=== PATIENT | male | born 1940 | race Caucasian/White ===

== ENCOUNTER 2017-03-26 06:02 | Day surgery (SDC) | payer OTHER ==
[~2017-03-26] VITALS: Ht 182.9 cm; Wt 118.2 kg
[~2017-03-26 06:02] MED LIST: ASPI81CH37 CHEW; ATOR40TA16 PO; CARV3.12 PO; GLIP10TA6 PO; ISOS30TA3 PO; LISI-515 PO; METF500T4 PO; MULTTAB67 PO; VITA100064 PO; VITA100T5 PO
[2017-03-26 06:40] VITALS: BP 157/84; PULSE 64; RESP 20; TEMP 98.2; O2SAT 94
[2017-03-26] MEDS ORDERED: [UNRECOGNIZED DRUG - CODE] PO (06:41)
[2017-03-26] MEDS ORDERED: VANCOMYCIN 1000 MG/NS 250 ML - implanted port/tunneled catheter IV SCH ×2 (07:15)
[2017-03-26] MEDS ORDERED: POVIDONE IODINE 5% (ANTISEPSIS KIT) 4 APPLICATIONS EACH NARE SCH (07:15)
[2017-03-26] MEDS ORDERED: SODIUM CHLORIDE 0.9% 1000 ML IV SCH (07:15)
[2017-03-26] MEDS ORDERED: CHLORHEXIDINE GLUCONATE 2 % 1 PACK (2 CLOTHS) TOPICAL SCH (07:15)
[2017-03-26] MEDS ORDERED: MIDAZOLAM HCL 5 MG/5 ML VIAL ONE (07:39)
[2017-03-26] MEDS ORDERED: SODIUM CHLORIDE 0.9% FLUSH 10 ML FLUSH IVF PRN (08:45)
--- NOTE | 2017-03-26 08:46 | PD.RAD ---
Post Procedure Progress Note Pre Procedure Diagnosis: (1) Bladder cancer Post Procedure Diagnosis: (1) Bladder cancer Procedure Date: Mar 26, 2017 Supervising Radiologist: Mike Zuniga Estimated blood loss: 3CC Anesthesia: Local, Conscious Sedation Plan of Activity Patient to Unit: ROPU Patient Condition: Fair Additional Comments: Port placed via the right IJ. The catheter is in good position OK for use. Full dictated report to follow. See PACS Report for procedural detail/treatment Mike Zuniga MD Mar 26, 2017 08:46
[2017-03-26 08:59] VITALS: BP 148/82; PULSE 61; RESP 17; TEMP 98; O2SAT 94
[2017-03-26 09:29] VITALS: BP 140/68; PULSE 58; RESP 16; O2SAT 94
[2017-03-26 09:59] VITALS: BP 125/70; PULSE 55; RESP 17; O2SAT 92
[2017-03-26 10:59] VITALS: BP 135/72; PULSE 57; RESP 18; O2SAT 95
--- NOTE | 2017-03-26 10:59 | RADRPT ---
EXAM DATE/TIME: 03/26/2017 07:48 [facility] COMPARISON: No previous studies available for comparison. INDICATIONS : Patient presents with bladder cancer in need of port placement for chemotherapy treatment. MEDICAL HISTORY : HTN DM Glaucoma CAD Skin cancer Bladder cancer GERD Cataracts SURGICAL HISTORY : Tonsillectomy Left knee meniscus tear ENCOUNTER: Initial ACUITY: 1 week PAIN SCORE: 0/10 LOCATION: N/A FLUORO TIME: 0.6 minutes IMAGE SERIES: 1 SEDATION TIME: 30 minutes ACCESS: Right internal jugular vein SEDATION: 1.) 3 mg midazolam (Versed) IV 2.) 150 mcg fentanyl (Sublimaze) IV Prophylactic antibiotics were administered with appropriate pre-procedure timing. Vancomycin within 2 hours of procedure, Ancef (or alternative) within 1 hour of procedure. DEVICE: 1. [address] w/vortex PROCEDURE : 1. Continuous pulse oximetry and EKG monitoring. 2. Intravenous conscious sedation. 3. Ultrasound guidance for venous access. 4. Fluoroscopic guided implantable central venous port placement. The patient was placed supine. The neck was prepped in sterile fashion. Full sterile technique was u sed, including cap, mask, sterile gloves and gown, and a large sterile sheet. Hand hygiene and 2% ch lorhexidine Betadine was utilized per protocol for cutaneous antisepsis with appropriate dry time for site. Sterile gel and sterile probe cover were utilized for ultrasound guidance. The skin and sub cutaneous tissues were infiltrated with local anesthetic solution. Under direct ultrasound guidance, central venous access was accomplished via the right internal jugul ar vein. The ultrasound images depicting access guidance were stored and saved to PACS for permanent record. A subcutaneous pocket was created using blunt dissection. The port was introduced to the p ocket. The catheter tubing was fed through a subcutaneous tunnel to the venotomy site. The catheter tubing was cut to a suitable length and then was introduced through a valved Peel-Away sheath and po sitioned with catheter tubing tip at the cavo-atrial junction level. The pocket incision was closed with subcuticular Vicryl suture. Steri-Strips were applied. The port was flushed and locked with he jennifer solution per protocol. Sterile dressing was applied to the site. The patient tolerated the pr ocedure well. Conscious sedation was performed with the prescribed dosages and duration as above in the presence of an independent trained radiology nurse to assist in the monitoring of the patient. EKG and oximetry remained stable throughout the procedure. The patient tolerated the procedure well and there were no complications. The patient was sent to post anesthesia recovery in stable condition. CONCLUSION: Uncomplicated ultrasound and fluoroscopic guided implanted central venous port catheter placement as described in detail above. An 8 Slovenian Power port was placed. Mike Zuniga MD on March 26, 2017 at 10:57 Board Certified Radiologist. This report was verified electronically.
== END 2017-03-26 11:15 | disposition home or self-care (01) ==
LOC: HROP 06:02 → HRIP 06:05 → HROP 11:15
PROVIDERS: ATTEND Internal Medicine
DX: C67.9 Malignant neoplasm of bladder, unspecified (principal); I25.10 Atherosclerotic heart disease of native coronary artery without angina pectoris; I10 Essential (primary) hypertension; E11.9 Type 2 diabetes mellitus without complications; K21.9 Gastro-esophageal reflux disease without esophagitis; H40.9 Unspecified glaucoma; Z85.828 Personal history of other malignant neoplasm of skin
CPT/HCPCS: 36561; 76937; 77001; 99152; 99153; C1788; J1642; J2250; J3010; J3370; J7030; J7050

== ENCOUNTER 2017-04-28 20:44 | Emergency (ER) | payer OTHER ==
[~2017-04-28] VITALS: Ht 182.9 cm; Wt 100.0 kg
[~2017-04-28 20:44] MED LIST changes: -ASPI81CH37 CHEW; +ASPI81CH6 CHEW; -ISOS30TA3 PO; -VITA100T5 PO; +[UNRECOGNIZED DRUG - CODE] PO
[2017-04-28 20:46] VITALS: BP 161/81; PULSE 102; RESP 16; TEMP 98.2; O2SAT 100
--- NOTE | 2017-04-28 21:43 | PD ---
HPI Chief Complaint: Diabetic Time Seen by Provider: 21:36 Travel History International Travel<30 days: No Contact w/Intl Traveler<30days: No Traveled to known affect area: No History of Present Illness HPI The patient is a 76 year old male who presents to the [facility] emergency department with a history of difficult to control blood sugar over the last couple weeks. 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 The patient reports that this was originally diagnosed in February and status post surgical resection. The patient has also had an Zbyoiy-x-Lueh placed in the right side of his chest. The patient reports that his primary care physician is . The patient reports that he was originally diagnosed with diabetes approximately 3 years ago. He reports that the glipizide and metformin that he was previously on was well controlling his blood sugar usually around 120. The patient reports that recently his blood sugars have been up as high as in the 300s. Yesterday, he began to have polyuria and polydipsia. The patient reports that today his blood sugar went as high as 574. He was told by his primary care physician to come to the emergency department for evaluation and treatment. The patient denies having any dysuria. He denies having any chest pain, chest pressure, or shortness of breath. He does report having a 1 week history of occasional dry cough. He denies having any fevers or chills. On review of systems otherwise, the patient denies having any neck pain, abdominal pain, vomiting, diarrhea, or neurologic symptoms. He reports having generalized fatigue. He reports having some mild constipation although he did move his bowels earlier today. He reports that for the last 5 days he has been receiving Neupogen injections. [facility] Past Medical History Narrative Medical The patient's past medical history is significant for a stage III urothelial cancer involving the prostate and bladder, history of diabetes mellitus, history of coronary artery disease, history of diverticulitis, hyperlipidemia, hypertension Cancer: Yes (SKIN, bladder ) Cardiac Catheterization: Yes Cardiovascular Problems: Yes (CAD) Diabetes: Yes (TYPE II) Patient Takes Glucophage: No (04/28/2017 1930) Endocrine: Yes Gastrointestinal Disorders: Yes (ACID REFLUX) Glaucoma: Yes Genitourinary: No Hepatitis: No Hiatal Hernia: No Hypertension: Yes Immune Disorder: No Musculoskeletal: Yes (TORN MEDIAL MENISCUS R KNEE, ARTHRITIS LEFT KNEE) Neurologic: Yes (TINGLING L LEG ABOVE KNEE) Psychiatric: No Reproductive: No Respiratory: No Immunizations Current: Yes Thyroid Disease: No Tetanus Vaccination: < 5 Years Influenza Vaccination: Yes Past Surgical History Narrative Surgical The patient's past surgical history is significant for cardiac catheterization in 2015, colonoscopy in 2014, meniscus repair in 2013, TURBT procedure February 2017 Abdominal Surgery: No AICD: No Body Medical Devices: N/A Cardiac Surgery: No Ear Surgery: No Endocrine Surgery: No Eye Surgery: No Joint Replacement: No Oral Surgery: Yes (TONSILLECTOMY;CROWNS) Pacemaker: No Thoracic Surgery: No Other Surgery: Yes Social History Alcohol Use: No Tobacco Use: No Substance Use: No Allergies-Medications (Allergen,Severity, Reaction): Coded Allergies: penicillin G (Unverified Allergy, Intermediate, RASH, 04/28/17) Reported Meds & Prescriptions Reported Meds & Active Scripts Active Cipro (Ciprofloxacin HCl) 500 Mg Tab 500 Mg PO BID Novolog Flexpen Inj (Insulin Aspart) 300 Unit/3 Ml Pen 1 Units SQ DIRECTED Reported Vitamin C (Ascorbic Acid) 1,000 Mg Tablet.er 1 Tab PO DAILY Vitamin D (Cholecalciferol) 2,000 Unit Tab 1 Tab PO DAILY Lisinopril 10 Mg Tab 10 Mg PO DAILY Atorvastatin (Atorvastatin Calcium) 80 Mg Tab 80 Mg PO HS Multiple Vitamin 1 Tab 1 Tab PO DAILY Metformin ER (Metformin HCl) 500 Mg Katelin 1,000 Mg PO DAILY With evening meal Glipizide 10 Mg Tab 5 Mg PO BIDAC Take 30 minutes before a meal Atorvastatin (Atorvastatin Calcium) 40 Mg Tab 40 Mg PO HS Aspirin Low Dose (Aspirin) 81 Mg Chew 81 Mg CHEW DAILY Review of Systems Except as stated in HPI: all other systems reviewed are Neg General / Constitutional: No: Fever Eyes: No: Visual changes HENT: No: Headaches, Rhinorrhea, Congestion Cardiovascular: No: Chest Pain or Discomfort, Dyspnea on exertion Respiratory: Positive: Cough, No: Shortness of Breath Gastrointestinal: No: Nausea, Vomiting, Diarrhea, Abdominal Pain Genitourinary: Positive: Frequency, No: Urgency, Dysuria Musculoskeletal: No: Pain Skin: No Rash Neurologic: Positive: Weakness (generalized fatigue), No: Focal Abnormalities, Change in Mentation, Slurred Speech, Sensory Disturbance Psychiatric: No: Depression Endocrine: Positive: Polyuria, Polydipsia Hematologic/Lymphatic: No: Easy Bruising Physical Exam Narrative General: The patient is a well-developed well-nourished male in no acute distress. Head and Neck exam: Head is normocephalic atraumatic. Eyes: EOMI, pupils are equal round and reactive to light. Nose: Midline septum with pink mucous membranes Mouth: Dentition unremarkable. Moist mucus membranes. Posterior oropharynx is not erythematous. No tonsillar hypertrophy. Uvula midline. Airway patent. Neck: No palpable lymphadenopathy. No nuchal rigidity. No thyromegaly. Cardiovascular: Regular rate and rhythm without murmurs, gallops, or rubs. Lungs: Clear to auscultation bilaterally. No wheezes, rhonchi, or rales. Abdomen: Soft, without tenderness to palpation in all 4 quadrants of the abdomen. No guarding, rebound, or rigidity. Normal bowel sounds are audible. No tenderness on palpation of McBurney's point. Negative Beasley's sign. Extremities: No clubbing, cyanosis, or edema. 2+ pulses in all 4 extremities. No calf tenderness on palpation. Back: No spinous process tenderness to palpation. No costovertebral angle tenderness to palpation. Neurologic Exam: Grossly nonfocal. Skin Exam: No rash noted. Intact skin that is warm and dry. Data Data Last Documented VS Vital Signs Date Time Temp Pulse Resp B/P (MAP) Pulse Ox O2 Delivery O2 Flow Rate FiO2 04/29/17 01:39 99 18 150/92 (111) 98 04/28/17 22:56 Room Air 04/28/17 20:46 98.2 Orders Orders Electrocardiogram (04/28/17 21:48) Complete Blood Count With Diff (04/28/17 21:48) Comprehensive Metabolic Panel (04/28/17 21:48) Creatine Kinase (Cpk) (04/28/17 21:48) Ckmb (Isoenzyme) Profile (04/28/17 21:48) Troponin I (04/28/17 21:48) Prothrombin Time / Inr (Pt) (04/28/17 21:48) Act Partial Throm Time (Ptt) (04/28/17 21:48) Lipase (04/28/17 21:48) Urinalysis - C+S If Indicated (04/28/17 21:48) Magnesium (Mg) (04/28/17 21:48) Blood Gas Venous Ph (04/28/17 21:48) Beta Hydroxybutyrate (Acetone) (04/28/17 21:48) Chest, Single Ap (04/28/17 21:48) Iv Access Insert/Monitor (04/28/17 21:48) Ecg Monitoring (04/28/17 21:48) Oximetry (04/28/17 21:48) Sodium Chlorid 0.9% 500 Ml Inj (Ns 500 M (04/28/17 22:00) Insulin Human Regular Inj (Novolin R Inj (04/28/17 22:30) Urine Culture (04/28/17 22:00) Bedside Glucose PIA.CSUGAR (04/28/17 23:00) Ciprofloxacin 400 Mg Premix (Cipro 400 M (04/28/17 23:15) Labs Laboratory Tests Test 04/28/17 22:00 04/28/17 22:10 Urine Color LIGHT-YELLOW Urine Turbidity CLEAR Urine pH 5.5 Urine Specific Ellery 1.030 Urine Protein TRACE mg/dL Urine Glucose (UA) 1000 mg/dL Urine Ketones NEG mg/dL Urine Occult Blood SMALL Urine Nitrite NEG Urine Bilirubin NEG Urine Urobilinogen LESS THAN 2.0 MG/DL Urine Leukocyte Esterase MOD Urine RBC 22 /hpf Urine WBC 70 /hpf Urine Amorphous Sediment RARE Urine Bacteria RARE /hpf Urine Sperm RARE Microscopic Urinalysis Comment CULTURE INDICATED Venous Blood pH 7.42 White Blood Count 11.8 TH/MM3 Red Blood Count 4.33 MIL/MM3 Hemoglobin 13.7 GM/DL Hematocrit 39.5 % Mean Corpuscular Volume 91.1 FL Mean Corpuscular Hemoglobin 31.6 PG Mean Corpuscular Hemoglobin Concent 34.6 % Red Cell Distribution Width 13.7 % Platelet Count 139 TH/MM3 Mean Platelet Volume 7.6 FL Neutrophils (%) (Auto) 80.4 % Lymphocytes (%) (Auto) 15.9 % Monocytes (%) (Auto) 2.8 % Eosinophils (%) (Auto) 0.8 % Basophils (%) (Auto) 0.1 % Neutrophils # (Auto) 9.5 TH/MM3 Lymphocytes # (Auto) 1.9 TH/MM3 Monocytes # (Auto) 0.3 TH/MM3 Eosinophils # (Auto) 0.1 TH/MM3 Basophils # (Auto) 0.0 TH/MM3 CBC Comment AUTO DIFF Differential Comment AUTO DIFF CONFIRMED Prothrombin Time 10.1 SEC Prothromb Time International Ratio 0.9 RATIO Activated Partial Thromboplast Time 22.5 SEC Blood Urea Nitrogen 31 MG/DL Creatinine 1.18 MG/DL Random Glucose 454 MG/DL Total Protein 6.4 GM/DL Albumin 3.3 GM/DL Calcium Level 9.0 MG/DL Magnesium Level 1.6 MG/DL Alkaline Phosphatase 96 U/L Aspartate Amino Transf (AST/SGOT) 13 U/L Alanine Aminotransferase (ALT/SGPT) 37 U/L Total Bilirubin 0.4 MG/DL Sodium Level 135 MEQ/L Potassium Level 4.4 MEQ/L Chloride Level 96 MEQ/L Carbon Dioxide Level 30.7 MEQ/L Anion Gap 8 MEQ/L Estimat Glomerular Filtration Rate 60 ML/MIN Total Creatine Kinase 47 U/L Troponin I LESS THAN 0.02 NG/ML Lipase 428 U/L B-Hydroxybutyrate 0.30 MMOL/L MDM Medical Decision Making Medical Screen Exam Complete: Yes Emergency Medical Condition: Yes Medical Record Reviewed: Yes Interpretation(s) Last Impressions Chest X-Ray 04/28/172147 Signed Impressions: Service Date/Time: Friday, April 28, 2017 22:01 - CONCLUSION: No acute cardiopulmonary abnormality is identified. Richmond Negrete MD Differential Diagnosis DKA, versus hyperglycemic hyperosmolality, versus pneumonia, versus acute coronary syndrome Narrative Course During the course of the patients emergency department visit, the patients history, examination, and differential diagnosis were reviewed with the patient. The patient was placed on a patient monitor with oximetry and frequent blood pressure monitoring. The patient had IV access obtained and blood work sent for analysis. A VBG was ordered. A chest x-ray was ordered. The patient was initially provided normal saline a 500 mL bolus 1. The patients laboratory studies were reviewed and remarkable for a white count of 11.8, hemoglobin 13.8, platelets 139 with 80.4 neutrophils, VBG shows a pH of 7.42, PT 10.1, PTT 22.5, CMP is remarkable for sodium of 135, chloride 96, BUN 31, GFR 60, glucose 454, AST 13, CPK 47, troponin I less than 0.02, lipase 428, PT 10.1, PTT 22.5, urinalysis shows 1000 glucose, small occult blood, moderate leukocyte esterase, RBCs 22, WBC 70, rare bacteria. Culture indicated. Last prior urinalysis available at this facility for review was in 2013 and was found to be within normal limits. The patient was given ciprofloxacin 400 mg IV times one due to the possibility that a urinary tract infection is precipitated the patient's hyperglycemia. Beta hydroxybutyrate is 0.3 Radiology studies were reviewed and remarkable for a chest x-ray that shows no acute cardiopulmonary abnormality. The patient was sent home with a prescription for ciprofloxacin and NovoLog Flexpen The patient is resting comfortably and feels better, is alert and in no distress. The patients results and examination findings were discussed with the patient. The repeat examination is unremarkable and benign. The history, exam, diagnostic testing, and current condition do not suggest any significant pathology to warrant further testing, continued ED treatment, admission, or surgical evaluation at this point. The vital signs have been stable. The patient does not have uncontrollable pain, intractable vomiting, or other significant symptoms. The patient's condition is stable and appropriate for discharge. The patient will pursue further outpatient evaluation with a primary care physician or other designated or consulting physician as indicated in the discharge instructions. The patient expressed understanding and was agreeable with this plan. Diagnosis Primary Impression: Uncontrolled diabetes mellitus Qualified Codes: E11.65 - Type 2 diabetes mellitus with hyperglycemia Additional Impressions: Hyperglycemia Urinary tract infection Qualified Codes: N39.0 - Urinary tract infection, site not specified; R31.9 - Hematuria, unspecified Referrals: Primary Care Physician 1 day Patient Instructions: Diabetic Hyperglycemia (ED), General Instructions, Urinary Tract Infection in Men (ED) Additional Instructions: The patient is provided information regarding sliding scale insulin coverage with Novolog if his blood sugar is greater than 300. Med/Other Pt SpecificInfo: Prescription(s) given Scripts Ciprofloxacin (Cipro) 500 Mg Tab 500 MG PO BID for Infection, #19 TAB 0 Refills Prov: Jacinda Caraballo MD 04/29/17 Insulin Aspart Inj (Novolog Flexpen Inj) 300 Unit/3 Ml Pen 1 UNITS SQ DIRECTED for Blood Sugar Management, #1 PEN 0 Refills Prov: Jacinda Caraballo MD 04/28/17 Disposition: 01 DISCHARGE HOME Condition: Stable Jacinda Caraballo MD Apr 28, 2017 21:43
[2017-04-28] MEDS ORDERED: SODIUM CHLORID 0.9% 500 ML INJ 500 ML IV ONE (22:00)
--- NOTE | 2017-04-28 22:19 | RADRPT ---
EXAM DATE/TIME: 04/28/2017 22:01 [facility] COMPARISON: No previous studies available for comparison. INDICATIONS : Cough for 3 days. MEDICAL HISTORY : Gastroesophageal reflux disease. skin cancer, bladder cancer, HTN,DM,CAD,Glaucoma. SURGICAL HISTORY : Tonsillectomy. Port ENCOUNTER: Initial ACUITY: 3 days PAIN SCORE: 0/10 LOCATION: Bilateral chest FINDINGS: Portable AP view of the chest demonstrates a normal-sized cardiac silhouette. No effusion, consolidat ion, or pneumothorax is visualized. The bones and soft tissues demonstrate no acute abnormality. Righ t chest wall [id number] distal tip is in the superior vena cava. CONCLUSION: No acute cardiopulmonary abnormality is identified. Richmond Negrete MD on April 28, 2017 at 22:17 Board Certified Radiologist. This report was verified electronically.
[2017-04-28] MEDS ORDERED: INSULIN HUMAN REGULAR 1,000 UNITS/10 ML VIAL SQ ONE (22:30)
[2017-04-28 22:34] LABS: AUTOMATED NEUTROPHIL # 9.5 TH/MM3 (1.8-7.7); BASOPHIL % 0.1 % (0.0-2.0); EOSINOPHIL # 0.1 TH/MM3 (0-0.4); EOSINOPHIL % 0.8 % (0.0-4.0); HEMATOCRIT 39.5 % (39.0-51.0); LYMPH % 15.9 % (9.0-44.0); LYMPHOCYTE # 1.9 TH/MM3 (1.0-4.8); MEAN CELL VOLUME 91.1 FL (80.0-100.0); MEAN CORPUSCULAR HEMOGLOBIN 31.6 PG (27.0-34.0); MEAN CORPUSCULAR HGB CONC 34.6 % (32.0-36.0); MONO % 2.8 % (0.0-8.0); NEUT % 80.4 % (16.0-70.0); PLATELET COUNT 139 TH/MM3 (150-450); RED BLOOD COUNT 4.33 MIL/MM3 (4.50-5.90); RED CELL DISTRIBUTION WIDTH 13.7 % (11.6-17.2); WHITE BLOOD COUNT 11.8 TH/MM3 (4.0-11.0)
[2017-04-28 22:34] LABS: BACTERIA, URINE RARE /hpf; BLOOD, URINE SMALL (NEG); COMMENT (UR) CULTURE INDICATED; CULTURE IF INDICATED CULTURE INDICATED; GLUCOSE,URINE 1000 mg/dL (NEG); KETONE, URINE NEG (NEG); NITRITE,URINE NEG (NEG); PH, URINE 5.5 (5.0-8.5); URINE COLOR LIGHT-YELLOW (YELLW/STRAW)
[2017-04-28] MEDS ORDERED: VITA20003 PO (22:34)
[2017-04-28] MEDS ORDERED: ATOR80TA45 PO (22:34)
[2017-04-28] MEDS ORDERED: ASCO100029 PO (22:34)
[2017-04-28] MEDS ORDERED: LISI10TA3 PO (22:34)
[2017-04-28 22:37] LABS: HEMO FLAGS AUTO DIFF
[2017-04-28 22:46] LABS: APTT (PATIENT) 22.5 SEC (24.3-30.1); INTERNATIONAL NORMALIZED RATIO 0.9 RATIO; PROTHROMBIN TIME - PATIENT 10.1 SEC (9.8-11.6)
[2017-04-28 22:56] VITALS: RESP 20; O2SAT 96
[2017-04-28 22:57] LABS: ALKALINE PHOSPHATASE 96 U/L (45-117); ALT (GPT) 37 U/L (12-78); ANION GAP 8 MEQ/L (5-15); AST (GOT) 13 U/L (15-37); BICARBONATE 30.7 MEQ/L (21.0-32.0); BLOOD UREA NITROGEN 31 MG/DL (7-18); CHLORIDE 96 MEQ/L (98-107); GLOMERULAR FILTRATION RATE 60 ML/MIN (>89); MAGNESIUM 1.6 MG/DL (1.5-2.5); POTASSIUM 4.4 MEQ/L (3.5-5.1); SODIUM (NA) 135 MEQ/L (136-145); TOTAL BILIRUBIN ADULT 0.4 MG/DL (0.2-1.0)
[2017-04-28 22:59] LABS: CREATINE KINASE 47 U/L (39-308)
[2017-04-28 23:06] LABS: SCAN/DIFF AUTO DIFF CONFIRMED
[2017-04-28] MEDS ORDERED: CIPROFLOXACIN 400 MG PREMIX 200 ML IV ONE (23:15)
[2017-04-28] MEDS ORDERED: NOVOINJ3 SQ (23:22)
[2017-04-29] MEDS ORDERED: CIPR-9 PO
[2017-04-29 01:39] VITALS: BP 150/92
--- NOTE | 2017-04-30 14:35 | EKG ---
Date Performed: 04/28/2017 Time Performed: 22:13:39 PTAGE: 76 years EKG: Sinus rhythm WITH OCCASIONAL SUPRAVENTRICULAR PREMATURE COMPLEXES POSSIBLE LEFT ATRIAL ENLARGEMENT NONSPECIFIC ST & T-WAVE ABNORMALITY BORDERLINE ECG PREVIOUS TRACING : 06/07/2016 12.25 Compared to prior tracing no significant change DOCTOR: Chris Tenorio Interpretating Date/Time 04/30/2017 14:28:37
== END 2017-04-29 00:56 | disposition home or self-care (01) ==
LOC: NEPE 20:44
DX: E11.65 Type 2 diabetes mellitus with hyperglycemia (principal); C67.9 Malignant neoplasm of bladder, unspecified; C79.82 Secondary malignant neoplasm of genital organs; N39.0 Urinary tract infection, site not specified; R05 Cough; I10 Essential (primary) hypertension; E78.5 Hyperlipidemia, unspecified; R94.31 Abnormal electrocardiogram [ECG] [EKG]; Z79.4 Long term (current) use of insulin
CPT/HCPCS: 71010; 80053; 81001; 82010; 82550; 82800; 83690; 83735; 84484; 85025; 85610; 85730; 87086; 93005; 96372; 96374; 99285; J0744; J1815; J7040

== ENCOUNTER → 2017-11-08 | Outpatient (CLI) | payer OTHER ==
[~2017-11-08] MED LIST changes: +ASCO100029 PO; +ATOR80TA45 PO; -CARV3.12 PO; +CIPR-9 PO; +DOXY100C PO; -LISI-515 PO; +LISI10TA3 PO; +LOPE-1 PO; +MELA5 PO; +MIRTA15 PO; +MUPI2OIN TOPICAL; +NOVOINJ3 SQ; +NYST15T TOPICAL; +TEST1INJ3 IM; -VITA100064 PO; +VITA20003 PO; -[UNRECOGNIZED DRUG - CODE] PO
[2017-11-08 11:05] LABS: AUTOMATED NEUTROPHIL # 3.7 TH/MM3 (1.8-7.7); BASOPHIL % 0.3 % (0.0-2.0); EOSINOPHIL # 0.2 TH/MM3 (0-0.4); EOSINOPHIL % 2.6 % (0.0-4.0); HEMATOCRIT 39.5 % (39.0-51.0); HEMOGLOBIN 12.9 GM/DL (13.0-17.0); LYMPHOCYTE # 1.8 TH/MM3 (1.0-4.8); MEAN CORPUSCULAR HEMOGLOBIN 29.7 PG (27.0-34.0); MEAN CORPUSCULAR HGB CONC 32.7 % (32.0-36.0); MEAN PLATELET VOLUME 6.7 FL (7.0-11.0); MONO % 10.9 % (0.0-8.0); MONOCYTE # 0.7 TH/MM3 (0-0.9); NEUT % 58.2 % (16.0-70.0); PLATELET COUNT 237 TH/MM3 (150-450); RED BLOOD COUNT 4.34 MIL/MM3 (4.50-5.90); RED CELL DISTRIBUTION WIDTH 18.9 % (11.6-17.2); WHITE BLOOD COUNT 6.3 TH/MM3 (4.0-11.0)
[2017-11-08 11:17] LABS: PROTHROMBIN TIME - PATIENT 10.2 SEC (9.8-11.6)
[2017-11-08 11:31] LABS: ALBUMIN 3.7 GM/DL (3.4-5.0); AST (GOT) 33 U/L (15-37); BICARBONATE 23.4 MEQ/L (21.0-32.0); BLOOD UREA NITROGEN 24 MG/DL (7-18); CALCIUM 9.1 MG/DL (8.5-10.1); CHLORIDE 111 MEQ/L (98-107); CREATININE 1.39 MG/DL (0.60-1.30); GLOMERULAR FILTRATION RATE 49 ML/MIN (>89); GLUCOSE,FASTING 118 MG/DL (74-99); SODIUM (NA) 143 MEQ/L (136-145)
[2017-11-08 11:32] LABS: ALT (GPT) 45 U/L (12-78)
[2017-11-08 11:35] LABS: ALKALINE PHOSPHATASE 60 U/L (45-117); TOTAL BILIRUBIN ADULT 0.4 MG/DL (0.2-1.0); TOTAL PROTEIN 8.1 GM/DL (6.4-8.2)
[2017-11-08 11:36] LABS: AMORPHOUS SEDIMENT, URINE RARE; BACTERIA, URINE MANY /hpf; BILIRUBIN, URINE NEG (NEG); BLOOD, URINE NEG (NEG); GLUCOSE,URINE NEG (NEG); KETONE, URINE NEG (NEG); NITRITE,URINE POS (NEG); PH, URINE 6.5 (5.0-8.5); URINE COLOR YELLOW (YELLW/STRAW); URINE LEUKOCYTE ESTERASE LARGE (NEG)
--- NOTE | 2017-11-08 12:26 | RADRPT ---
EXAM DATE: 11/08/2017 12:19 PM EDT AGE/SEX: 77 years / Male INDICATIONS: Pre op for colectomy. CLINICAL DATA: This is the patient's initial encounter. Patient reports that signs and symptoms have been present for 1 day and indicates a pain score of 0/10. MEDICAL/SURGICAL HISTORY: Gastroesophageal reflux disease. Carcinoma, bladder. Hypertension. CAD DIABETES GLAUCOMA . Tonsillectomy COMPARISON: No prior exams available for comparison. FINDINGS: PA and lateral views of the chest demonstrate the lungs to be symmetrically aerated without evidence of mass, infiltrate or effusion. The cardiomediastinal contours are unremarkable. [id number] in edward perior vena cava. Osseous structures are intact. CONCLUSION: No active disease. Nqhmmn-[id number]-Yajm in superior vena cava. Electronically signed by: Edy Salinas MD 11/08/2017 12:25 PM EDT
--- NOTE | 2017-11-09 15:32 | EKG ---
Date Performed: 11/08/2017 Time Performed: 10:47:30 PTAGE: 77 years EKG: Sinus rhythm NORMAL ECG Compared to PREVIOUS TRACING , the ST-T changes are no longer present. PREVIOUS TRACIN04/28/2017 2 2.13 DOCTOR: Al Ovalle Interpretating Date/Time 11/09/2017 15:31:01
== END ==
LOC: CPRE 10:16
PROVIDERS: ATTEND Colon & Rectal Surgery
DX: Z01.812 Encounter for preprocedural laboratory examination (principal); Z01.810 Encounter for preprocedural cardiovascular examination; Z01.811 Encounter for preprocedural respiratory examination; K94.09 Other complications of colostomy; N39.0 Urinary tract infection, site not specified; B96.20 Unspecified Escherichia coli [E. coli] as the cause of diseases classified elsewhere; Z16.11 Resistance to penicillins; Z16.23 Resistance to quinolones and fluoroquinolones; Z16.29 Resistance to other single specified antibiotic
CPT/HCPCS: 36415; 71046; 80053; 81001; 85025; 85610; 85730; 87077; 87086; 87186; 93005

== ENCOUNTER 2017-11-12 12:13 | Inpatient (IN) | payer OTHER, MEDICARE ==
[~2017-11-12] VITALS: Ht 182.9 cm; Wt 93.5 kg
[~2017-11-12 12:13] MED LIST changes: -CIPR-9 PO; +DEXAMETHASONE SOD PHOS 4 MG/ML VIAL IV ONE; -GLIP10TA6 PO; +GLYCOPYRROLATE 1 MG/5 ML SYRINGE IV PUSH ONE; +LACTATED RINGER'S 1000 ML INJ 1,000 ML IV ONE; +LIDOCAINE HCL 1% PF 5 ML SYRINGE OTHER ONE; -LISI10TA3 PO; -MULTTAB67 PO; +NEOSTIGMINE 5 MG/5 ML SYRINGE IV PUSH ONE; -NOVOINJ3 SQ; +ONDANSETRON HCL 4 MG/2 ML VIAL IV PUSH ONE; +PHENYLEPH/NS 1000 MCG/10 ML SYR IV ONE; +PROPOFOL 200 MG/20 ML AMP IV ONE; +ROCURONIUM INJ 50 MG/5 ML SYRINGE IV PUSH ONE
[2017-11-12] MEDS ORDERED: POVIDONE IODINE 5% (ANTISEPSIS KIT) 4 APPLICATIONS EACH NARE PRN (13:30)
[2017-11-12] MEDS ORDERED: METOPROLOL TARTRATE 25 MG TAB PO PRN (13:30)
[2017-11-12] MEDS ORDERED: METRONIDAZOLE 500 MG/100 ML ISONTONIC SOLN IV SCH (13:30)
[2017-11-12] MEDS ORDERED: DEXT 5%-NACL 0.9% 1000 ML INJ 1,000 ML IV SCH (13:30)
[2017-11-12] MEDS ORDERED: INSULIN HUMAN REGULAR 1,000 UNITS/10 ML VIAL SQ PRN (13:30)
[2017-11-12] MEDS ORDERED: SODIUM CHLORID 0.9% 500 ML IV PRN (13:30)
[2017-11-12] MEDS ORDERED: LACTATED RINGER'S 1000 ML IV PRN (13:30)
[2017-11-12] MEDS ORDERED: ALVIMOPAN 12 MG CAPSULE - On Call PO SCH (13:30)
[2017-11-12] MEDS ORDERED: CHLORHEXIDINE GLUCONATE 2 % 1 PACK (2 CLOTHS) TOPICAL PRN (13:30)
--- NOTE | 2017-11-12 13:49 | PD.HP.UP ---
H&P Update Note The Pre-Admit History and Physical Examination regarding the above named patient was reviewed (including, but not limited to, vital signs, heart, lungs, co-morbid conditions), and upon re-examination it is noted that: the patient's condition has not significantly changed since the last examination. Christopher Rutledge MD November 12, 2017 13:49
[2017-11-12] MEDS ORDERED: ceFAZolin INJ 1,000 MG VIAL ONE (13:57)
[2017-11-12] MEDS ORDERED: SODIUM CHLORIDE 0.9% INJ 100 ML ONE (13:57)
[2017-11-12] MEDS ORDERED: ACETAMINOPHEN 1000 MG/100 ML 100 ML IV ONE (14:12)
[2017-11-12 14:17] LABS: ALBUMIN 3.8 GM/DL (3.4-5.0); ALT (GPT) 38 U/L (12-78); AST (GOT) 32 U/L (15-37); BICARBONATE 22.8 MEQ/L (21.0-32.0); BLOOD UREA NITROGEN 18 MG/DL (7-18); CALCIUM 8.9 MG/DL (8.5-10.1); CHLORIDE 107 MEQ/L (98-107); CREATININE 1.37 MG/DL (0.60-1.30); GLOMERULAR FILTRATION RATE 50 ML/MIN (>89); GLUCOSE,RANDOM 99 MG/DL (74-106); SODIUM (NA) 141 MEQ/L (136-145)
[2017-11-12 14:20] LABS: ALKALINE PHOSPHATASE 58 U/L (45-117); TOTAL BILIRUBIN ADULT 0.4 MG/DL (0.2-1.0)
[2017-11-12] MEDS: D5-NS + KCL 20 MEQ INJ 1,000 ML IV SCH (17:03)
[2017-11-12] MEDS ORDERED: DO NOT ADM ANY ANTICOAGULANT DRUGS PRN (17:11)
[2017-11-12] MEDS ORDERED: MIDAZOLAM HCL 2 MG/2 ML VIAL ONE (17:14)
[2017-11-12] MEDS ORDERED: ONDANSETRON HCL 4 MG/2 ML VIAL IV PUSH PRN (17:15)
[2017-11-12] MEDS ORDERED: ACETAMINOPHEN 325 MG TAB PO PRN (17:15)
[2017-11-12] MEDS ORDERED: NALOXONE HCL 0.4 MG/ML AMP IV PUSH PRN (17:15)
[2017-11-12] MEDS ORDERED: MORPHINE SULFATE 30 MG/30 ML PCA IV SCH (17:15)
[2017-11-12] MEDS ORDERED: Post-op Orders (for Pharmacy) XX ONE (17:15)
[2017-11-12] MEDS ORDERED: POTASSIUM CHLOR 40 MEQ PREMIX 100 ML IV PRN (17:15)
[2017-11-12] MEDS ORDERED: POTASSIUM CHLOR 20 MEQ PREMIX 100 ML IV PRN (17:15)
[2017-11-12] MEDS ORDERED: BENZOCAINE 6 MG/MENTHOL 10 MG LOZENGE BUCCAL PRN (17:15)
[2017-11-12] MEDS ORDERED: *morphine SULFATE 8 MG/ML PERIprocedure ONLY ONE (17:19)
[2017-11-12] MEDS ORDERED: *LABETALOL HCL 100 MG/20 ML VIAL PERIprocedural Use ONLY ONE (17:20)
[2017-11-12] MEDS ORDERED: *ENALAPRILAT 1.25 MG/ML VIAL PERIprocedural Use ONLY ONE (17:44)
[2017-11-12 19:00] VITALS: BP 121/60; PULSE 62; RESP 16; TEMP 97.7; O2SAT 95
[2017-11-12 20:00] VITALS: BP 105/50; PULSE 80; O2SAT 97
[2017-11-12 21:00] VITALS: BP 110/58; PULSE 84; PULSE 86; O2SAT 97
[2017-11-12] MEDS: METOCLOPRAMIDE HCL 10 MG/2 ML VIAL IVS SCH (21:39)
[2017-11-12] MEDS: MIRTAZAPINE 15 MG TAB PO SCH (21:39)
[2017-11-12] MEDS: PCA - TOTAL MG MORPHINE DELIVERED PER SHIFT SCH (21:40)
[2017-11-12] MEDS: KETOROLAC TROMETHAMINE 30 MG/ML (IVP) VIAL IVP PRN (21:57)
[2017-11-12 22:00] VITALS: BP 138/65; PULSE 90; PULSE 93; O2SAT 98
[2017-11-12 23:00] VITALS: BP 101/51; PULSE 86; PULSE 89; RESP 16; TEMP 98.2; O2SAT 98
[2017-11-13] VITALS (20 sets, daily range): BP systolic 102–127; BP diastolic 51–60; PULSE 69–96; RESP 16–20; TEMP 97.6–98.7; O2SAT 96–98
[2017-11-13] MEDS: metroNIDAZOLE 500 MG INJ 100 ML IV SCH ×3 (00:34→16:00)
[2017-11-13] MEDS: D5-NS + KCL 20 MEQ INJ 1,000 ML IV SCH ×4 (00:39→20:59)
[2017-11-13 05:11] LABS: AUTOMATED NEUTROPHIL # 15.2 TH/MM3 (1.8-7.7); HEMATOCRIT 33.3 % (39.0-51.0); LYMPH % 3.4 % (9.0-44.0); LYMPHOCYTE # 0.6 TH/MM3 (1.0-4.8); MEAN CELL VOLUME 90.2 FL (80.0-100.0); MEAN CORPUSCULAR HEMOGLOBIN 29.8 PG (27.0-34.0); MEAN CORPUSCULAR HGB CONC 33.1 % (32.0-36.0); MEAN PLATELET VOLUME 7.1 FL (7.0-11.0); MONO % 5.1 % (0.0-8.0); MONOCYTE # 0.8 TH/MM3 (0-0.9); NEUT % 91.5 % (16.0-70.0); PLATELET COUNT 189 TH/MM3 (150-450); RED BLOOD COUNT 3.69 MIL/MM3 (4.50-5.90); RED CELL DISTRIBUTION WIDTH 18.1 % (11.6-17.2); WHITE BLOOD COUNT 16.7 TH/MM3 (4.0-11.0)
[2017-11-13 05:53] LABS: BICARBONATE 18.1 MEQ/L (21.0-32.0); CALCIUM 7.8 MG/DL (8.5-10.1); CREATININE 1.55 MG/DL (0.60-1.30)
[2017-11-13] MEDS: PCA - TOTAL MG MORPHINE DELIVERED PER SHIFT SCH ×3 (06:00→22:10)
[2017-11-13] MEDS: KETOROLAC TROMETHAMINE 30 MG/ML (IVP) VIAL IVP PRN ×2 (06:11→16:13)
[2017-11-13] MEDS: METOCLOPRAMIDE HCL 10 MG/2 ML VIAL IVS SCH ×2 (09:00→20:59)
[2017-11-13] MEDS: PANTOPRAZOLE SODIUM 40 MG VIAL IVP SCH (09:00)
[2017-11-13] MEDS ORDERED: ALVIMOPAN 12 MG CAPSULE PO SCH (09:00)
[2017-11-13] MEDS: PANTOPRAZOLE SOD 40 MG DELAYED RELEASE TAB PO SCH (09:00)
[2017-11-13] MEDS: ALVIMOPAN 12 MG CAPSULE - Post-op dosing PO SCH ×2 (09:00→20:58)
[2017-11-13] MEDS: ATORVASTATIN 40 MG TAB PO SCH (09:00)
--- NOTE | 2017-11-13 09:40 | HHI.PR ---
Subjective Remarks C/R Surg POD #1 afebrile, VSS UO good Objective - Vital Signs Date Time Temp Pulse Resp B/P (MAP) Pulse Ox O2 Delivery O2 Flow Rate FiO2 11/13/17 09:00 91 11/13/17 07:00 97.6 20 102/51 (68) 96 11/12/17 18:25 Nasal Cannula 2 Result Diagram: 11/13/17 0347 11/13/17 0347 Objective Remarks PE alert Abd - soft, wound dry, mild tympany A/P Assessment and Plan Imp: stable post-op OOB decr IVF tx to floor Christopher Rutledge MD November 13, 2017 09:40
[2017-11-13] MEDS: ACETAMINOPHEN/HYDROcodone 325 MG/5 MG TAB PO PRN (09:48)
--- NOTE | 2017-11-13 13:07 | MP ---
cc: Christopher Rutledge MDJosh [email or web address] DATE OF OPERATION: PREOPERATIVE DIAGNOSIS: 1. Attention to colostomy. 2. History of rectal perforation. 3. History of prostatectomy/cystectomy. PROCEDURE: Exploratory laparotomy with segmental colon resection and closure of colostomy. POSTOPERATIVE DIAGNOSIS: 1. Attention to colostomy. 2. History of rectal perforation. 3. History of prostatectomy/cystectomy. SURGEON: Christopher Rutledge MD CONTACT LENS BLOCKER AND CUTTER: Denis Lindquist MD PROCEDURE: The patient was placed in the supine position. After adequate general anesthesia, his legs were placed in the universal stirrups and supported appropriately. The abdomen and perineum were then prepped with Betadine solution and draped in the usual sterile fashion. With Dr. Lindquist's assistance, elliptical incision was made around the colostomy mobilizing the proximal and distal limbs from the subcutaneous tissues. The fascial attachments were released and the bowel mobilized up into the abdominal incision. There were some adhesions to the parietal peritoneum and these were taken down, gaining some mobilization of the proximal limb. The distal limb was somewhat fixed in the pelvis. The incision was therefore opened laterally, dividing some of the rectus muscles to gain better exposure. The lateral peritoneal reflection was then incised, mobilizing the bowel a little more fully, gaining some mobility of the distal segment. After adequate mobilization, the avascular plane was created proximal and distal to the colostomy and both limbs divided using the RUBY stapling device. The intervening mesentery taken between Carmen's obtaining hemostasis with Vicryl ties. Bowel continuity was then restored by firing of the RUBY stapler across the antimesenteric ends of the bowel, closing the enterotomy with a TA60 stapler. The mesenteric defect was closed with a single Vicryl suture and a 3-0 Vicryl crotch suture was placed as well. Bowel returned to the abdominal cavity without tension and with good blood supply. The abdomen was irrigated copiously. No sign of any intra-abdominal tumor was noted. The abdominal incision was then closed in 2 layers reapproximating the respective fascial layers using running number 1 PDS sutures. The subcutaneous tissue was irrigated copiously and the skin closed with a row of surgical renuka. Wound area washed with normal saline and dried, sterile dressing of Telfa and gauze applied. The patient tolerated the procedure quite well and was brought to the recovery room in stable condition. Sponge and needle counts were correct at the end of the procedure. Christopher Rutledge MD AHR/TL , 12:20 PM , 01:06 PM
[2017-11-13] MEDS: CHLORHEXIDINE GLUCONATE 2 % 1 PACK (2 CLOTHS) TOPICAL SCH (17:59)
[2017-11-13] MEDS: MIRTAZAPINE 15 MG TAB PO SCH (20:58)
[2017-11-13] MEDS: MELATONIN 5 MG TAB PO PRN (20:59)
[2017-11-14 03:20] VITALS: BP 124/57; PULSE 82; RESP 20; TEMP 98.4; O2SAT 96
[2017-11-14] MEDS: PCA - TOTAL MG MORPHINE DELIVERED PER SHIFT SCH (06:00)
[2017-11-14 07:23] VITALS: BP 129/61; PULSE 78; RESP 18; TEMP 98.3; O2SAT 96
--- NOTE | 2017-11-14 07:55 | HHI.PR ---
Subjective Remarks C/R Surg POD #2 afebrile, VSS UO good angelica PO Objective - Vital Signs Date Time Temp Pulse Resp B/P (MAP) Pulse Ox O2 Delivery O2 Flow Rate FiO2 11/14/17 06:00 17 11/14/17 03:20 98.4 82 124/57 (79) 96 11/12/17 18:25 Nasal Cannula 2 Result Diagram: 11/13/1734611/13/17 034 Objective Remarks PE alert Abd - soft, wound dry, mild tympany, +flatus A/P Assessment and Plan Imp: OOB decr IVF adv diet Christopher Rutledge MD November 14, 2017 07:55
--- NOTE | 2017-11-14 07:56 | HHI.FF ---
Face to Face Verification Diagnosis: (1) Bladder cancer Home Health Nursing Order: Signs/symptoms of disease process Wound care and dressing changes Nursing assessment with vital signs I have seen patient Elver Medina on 11/14/17. My clinical findings support the need for the requested home health care services because: Ltd mobility - disease progression Deconditioned w/ increased weakness Need for psychosocial assistance Infection w/ risk of complications I certify that my clinical findings support that this patient is homebound because: Post-op weakness Unsteady gait/balance Christopher Rutledge MD November 14, 2017 07:56
[2017-11-14] MEDS ORDERED: METOCLOPRAMIDE HCL 10 MG/2 ML VIAL IVS PRN (08:00)
[2017-11-14] MEDS: ATORVASTATIN 40 MG TAB PO SCH (08:40)
[2017-11-14] MEDS: ALVIMOPAN 12 MG CAPSULE - Post-op dosing PO SCH ×2 (08:40→21:27)
[2017-11-14] MEDS: PANTOPRAZOLE SOD 40 MG DELAYED RELEASE TAB PO SCH (08:40)
[2017-11-14] MEDS: PANTOPRAZOLE SODIUM 40 MG VIAL IVP SCH (08:41)
[2017-11-14] MEDS: CHLORHEXIDINE GLUCONATE 2 % 1 PACK (2 CLOTHS) TOPICAL SCH (08:41)
[2017-11-14 11:28] VITALS: BP 157/70; PULSE 69; RESP 18; TEMP 98; O2SAT 98
[2017-11-14 12:36] LABS: AUTOMATED NEUTROPHIL # 8.7 TH/MM3 (1.8-7.7); BASOPHIL % 0.4 % (0.0-2.0); EOSINOPHIL % 0.3 % (0.0-4.0); HEMATOCRIT 34.3 % (39.0-51.0); HEMOGLOBIN 11.4 GM/DL (13.0-17.0); LYMPH % 11.1 % (9.0-44.0); LYMPHOCYTE # 1.2 TH/MM3 (1.0-4.8); MEAN CELL VOLUME 91.7 FL (80.0-100.0); MEAN CORPUSCULAR HEMOGLOBIN 30.5 PG (27.0-34.0); MEAN CORPUSCULAR HGB CONC 33.3 % (32.0-36.0); MEAN PLATELET VOLUME 7.3 FL (7.0-11.0); MONO % 7.1 % (0.0-8.0); MONOCYTE # 0.8 TH/MM3 (0-0.9); NEUT % 81.1 % (16.0-70.0); PLATELET COUNT 156 TH/MM3 (150-450); RED BLOOD COUNT 3.74 MIL/MM3 (4.50-5.90); RED CELL DISTRIBUTION WIDTH 18.8 % (11.6-17.2); WHITE BLOOD COUNT 10.7 TH/MM3 (4.0-11.0)
[2017-11-14 12:57] LABS: BICARBONATE 19.9 MEQ/L (21.0-32.0); CALCIUM 8.2 MG/DL (8.5-10.1); CREATININE 1.13 MG/DL (0.60-1.30)
[2017-11-14 15:49] VITALS: BP 140/65; PULSE 80; RESP 18; TEMP 98.2; O2SAT 99
[2017-11-14] MEDS: D5-NS + KCL 20 MEQ INJ 1,000 ML IV SCH ×2 (16:24→21:52)
[2017-11-14] MEDS: ACETAMINOPHEN/HYDROcodone 325 MG/5 MG TAB PO PRN ×2 (17:36→21:27)
[2017-11-14 19:50] VITALS: BP 156/71; PULSE 77; RESP 19; TEMP 98.8; O2SAT 96
[2017-11-14] MEDS: MELATONIN 5 MG TAB PO PRN (21:26)
[2017-11-14] MEDS: MIRTAZAPINE 15 MG TAB PO SCH (21:27)
[2017-11-14 23:37] VITALS: BP 139/63; PULSE 70; RESP 19; TEMP 98; O2SAT 96
[2017-11-15 07:23] VITALS: BP 159/64; PULSE 70; RESP 18; TEMP 97.8; O2SAT 99
[2017-11-15] MEDS: ALVIMOPAN 12 MG CAPSULE - Post-op dosing PO SCH ×2 (08:04→21:07)
[2017-11-15] MEDS: PANTOPRAZOLE SOD 40 MG DELAYED RELEASE TAB PO SCH (08:04)
[2017-11-15] MEDS: ATORVASTATIN 40 MG TAB PO SCH (08:05)
[2017-11-15] MEDS: ACETAMINOPHEN/HYDROcodone 325 MG/5 MG TAB PO PRN ×3 (08:05→18:38)
[2017-11-15] MEDS: PANTOPRAZOLE SODIUM 40 MG VIAL IVP SCH (08:05)
[2017-11-15] MEDS: ENALAPRILAT 1.25 MG/ML VIAL IV PUSH PRN (08:06)
[2017-11-15] MEDS: CHLORHEXIDINE GLUCONATE 2 % 1 PACK (2 CLOTHS) TOPICAL SCH (08:06)
[2017-11-15 11:06] VITALS: BP 137/63; PULSE 66; RESP 18; TEMP 97.9; O2SAT 98
[2017-11-15 15:02] VITALS: BP 152/67; PULSE 72; RESP 16; TEMP 98.2; O2SAT 99
[2017-11-15] MEDS: D5-NS + KCL 20 MEQ INJ 1,000 ML IV SCH (17:00)
[2017-11-15] MEDS: ENALAPRILAT 2.5 MG/2 ML VIAL IV PUSH PRN (17:11)
[2017-11-15 18:00] VITALS: BP 171/70; PULSE 70; RESP 18; TEMP 98.5; O2SAT 98
[2017-11-15] MEDS ORDERED: PILL SPLITTER OTHER PRN (18:30)
[2017-11-15] MEDS: metFORMIN HCL 500 MG TAB PO SCH (18:35)
[2017-11-15 20:00] VITALS: BP 165/69; PULSE 68; RESP 20; TEMP 97.6; O2SAT 97
[2017-11-15] MEDS ORDERED: GLUCAGON 1 MG/ML VIAL OTHER PRN (20:45)
[2017-11-15] MEDS ORDERED: DEXTROSE 50% IN WATER 50 ML VIAL(D50) IV PUSH PRN (20:45)
[2017-11-15] MEDS: LOW DOSE INSULIN NOVOLOG SUPPLEMENTAL SCALE SQ SCH (21:07)
[2017-11-15] MEDS: MIRTAZAPINE 15 MG TAB PO SCH (21:07)
[2017-11-15] MEDS: MELATONIN 5 MG TAB PO PRN (21:41)
[2017-11-16] VITALS: BP 158/71; PULSE 58; RESP 20; TEMP 97.9; O2SAT 95
[2017-11-16] MEDS: ACETAMINOPHEN/HYDROcodone 325 MG/5 MG TAB PO PRN ×5 (00:37→21:49)
[2017-11-16] MEDS: D5-NS + KCL 20 MEQ INJ 1,000 ML IV SCH ×2 (06:04→20:40)
[2017-11-16] MEDS: PANTOPRAZOLE SODIUM 40 MG VIAL IVP SCH (07:14)
[2017-11-16] MEDS: LOW DOSE INSULIN NOVOLOG SUPPLEMENTAL SCALE SQ SCH ×4 (07:50→20:40)
[2017-11-16 08:00] VITALS: BP 180/78; PULSE 62; RESP 18; TEMP 97.8; O2SAT 96
[2017-11-16] MEDS: ALVIMOPAN 12 MG CAPSULE - Post-op dosing PO SCH ×2 (08:19→20:39)
[2017-11-16] MEDS: ATORVASTATIN 40 MG TAB PO SCH (08:19)
[2017-11-16] MEDS: PANTOPRAZOLE SOD 40 MG DELAYED RELEASE TAB PO SCH (08:19)
[2017-11-16] MEDS: ENALAPRILAT 1.25 MG/ML VIAL IV PUSH PRN (08:19)
[2017-11-16] MEDS: metFORMIN HCL 500 MG TAB PO SCH ×3 (08:20→16:41)
--- NOTE | 2017-11-16 08:37 | HHI.PR ---
Subjective Remarks C/R Surg POD #4 afebrile, VSS UO good angelica PO +flatus Objective - Vital Signs Date Time Temp Pulse Resp B/P (MAP) Pulse Ox O2 Delivery O2 Flow Rate FiO2 11/16/17 00:00 97.9 58 20 158/71 (100) 95 11/12/17 18:25 Nasal Cannula 2 Result Diagram: 11/14/17 1215 11/14/17 1215 Objective Remarks PE alert Abd - soft, wound dry, mild tympany, +flatus A/P Assessment and Plan Imp: OOB decr IVF adv diet dc plans Christopher Rutledge MD Nov 16, 2017 08:37
[2017-11-16] MEDS ORDERED: HYDR-3516 PO (08:41)
--- NOTE | 2017-11-16 08:54 | PQ ---
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 Please specify as to which portion of the colon was resected: ascending, descending, sigmoid, or transverse. Other explanation of clinical findings. Unable to determine (no explanation for clinical findings). Please clarify and document your clinical opinion in the progress notes and discharge summary includi ng the definitive and/or presumptive diagnosis (suspected or probable), related to the above clinical findings. Please include clinical findings supporting your diagnosis. 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
[2017-11-16 12:00] VITALS: BP 160/74; PULSE 64; RESP 18; TEMP 97.5; O2SAT 97
[2017-11-16 16:00] VITALS: BP 179/77; PULSE 71; RESP 18; TEMP 98.3; O2SAT 97
[2017-11-16] MEDS ORDERED: METF500T PO (16:57)
[2017-11-16] MEDS: ENALAPRILAT 2.5 MG/2 ML VIAL IV PUSH PRN (17:15)
[2017-11-16 20:00] VITALS: BP 187/88; PULSE 67; RESP 18; TEMP 97.9; O2SAT 96
[2017-11-16] MEDS: MELATONIN 5 MG TAB PO PRN (20:39)
[2017-11-16] MEDS: MIRTAZAPINE 15 MG TAB PO SCH (20:39)
[2017-11-17] VITALS: BP 172/81; PULSE 69; RESP 18; TEMP 97.9; O2SAT 96
[2017-11-17] MEDS: ACETAMINOPHEN/HYDROcodone 325 MG/5 MG TAB PO PRN (05:43)
[2017-11-17] MEDS: PANTOPRAZOLE SODIUM 40 MG VIAL IVP SCH (07:07)
[2017-11-17] MEDS: LOW DOSE INSULIN NOVOLOG SUPPLEMENTAL SCALE SQ SCH ×2 (07:52→12:17)
[2017-11-17 08:00] VITALS: BP 180/83; PULSE 61; RESP 18; TEMP 97.1; O2SAT 97
[2017-11-17] MEDS: ALVIMOPAN 12 MG CAPSULE - Post-op dosing PO SCH (09:00)
[2017-11-17] MEDS: PANTOPRAZOLE SOD 40 MG DELAYED RELEASE TAB PO SCH (09:00)
[2017-11-17] MEDS: ATORVASTATIN 40 MG TAB PO SCH (09:00)
[2017-11-17] MEDS: metFORMIN HCL 500 MG TAB PO SCH (09:01)
[2017-11-17] MEDS ORDERED: LISI-515 PO (10:02)
--- NOTE | 2017-11-17 12:26 | HHI.PR ---
Subjective Remarks C/R Surg POD #5 afebrile, VSS UO good angelica PO +flatus/BM Objective - Vital Signs Date Time Temp Pulse Resp B/P (MAP) Pulse Ox O2 Delivery O2 Flow Rate FiO2 11/17/17 08:00 97.1 61 18 180/83 (115 97 Result Diagram: 11/14/17 1215 11/14/17 1215 Objective Remarks PE alert Abd - soft, wound dry, mild tympany, +flatus A/P Assessment and Plan Imp: OOB decr IVF adv diet dc plans Christopher Rutledge MD Nov 17, 2017 12:26
== END 2017-11-17 12:32 | disposition home health service (06) | DRG 331 ==
LOC: HSDI 12:13 → HCPC 18:40 → N07B 11-15 16:10
PROVIDERS: ADMIT Colon & Rectal Surgery; ATTEND Colon & Rectal Surgery
PROC: 0DBM0ZZ Excision of Descending Colon, Open Approach (ICD-10-PCS; principal; 2017-11-13)
PROC: 0DBN0ZZ Excision of Sigmoid Colon, Open Approach (ICD-10-PCS; 2017-11-13)
DX: Z43.3 Encounter for attention to colostomy (principal); C61 Malignant neoplasm of prostate
CPT/HCPCS: 80048; 80053; 82948; 85025; 86850; 86900; 86901; 94150; J0131; J0690; J1100; J1815; J1885; J2250; J2270; J2370; J2405; J2710; J2765; J3010; J3480; J7120